=== PATIENT | female | born 1995 | race Caucasian/White ===

== ENCOUNTER 2021-07-29 11:06 | Day surgery (SDC) | payer MEDICAID ==
[2021-07-29] MEDS ORDERED: LACTATED RINGERS 1,000 ML IV ONE (11:39)
[2021-07-29] MEDS ORDERED: BUPIVACAINE 0.5% PF 10 ML VIAL IM ONE ×2 (12:16)
[2021-07-29] MEDS ORDERED: LIDOCAINE 2%-EPI 1:100000 20 ML MDV SUBQ ONE ×2 (12:16)
[2021-07-29] MEDS ORDERED: BUPIVACAINE 0.5% PF 10 ML VIAL ONE (12:17)
[2021-07-29] MEDS ORDERED: LIDOCAINE 2%-EPI 1:100000 20 ML MDV ONE (12:17)
[2021-07-29] MEDS ORDERED: LIDOCAINE OINTMENT 5% 35.44 GM TUBE ONE (12:18)
--- NOTE | 2021-07-29 12:38 | ANESTHESIA ---
Pre-Anesthesia VS, & Labs - Diagnosis incarcerated hemorrhoid - Procedure EUA, hemorrhoid banding Vital Signs: Temp Pulse Resp BP Pulse Ox 36.7 C 72 14 127/87 H 96 07/29/21 11:28 07/29/21 11:28 07/29/21 11:28 07/29/21 11:28 07/29/21 11:28 Height: 5 ft 10 in Weight (kg): 137 kg Body Mass Index: 43.3 BMI Classification: Morbidly Obese - NPO >8 hours - Is Patient ?: No Home Medications and Allergies Home Medications: Ambulatory Orders Albuterol Sulfate [Proair Respiclick] 2 mcg IH BID 07/24/21 Alprazolam [Xanax] 0.25 mg PO DAILY 07/24/21 Fluticasone 44 Mcg [Flovent] 1 puffs INH BID 07/24/21 Venlafaxine ER [Effexor ER] 75 mg PO DAILY 07/24/21 metFORMIN [Glucophage] 500 mg PO ONCE 07/24/21 Albuterol Sulfate [Proair Respiclick] 2 mcg IH BID 07/24/21 Alprazolam [Xanax] 0.25 mg PO DAILY 07/24/21 Fluticasone 44 Mcg [Flovent] 1 puffs INH BID 07/24/21 Venlafaxine ER [Effexor ER] 75 mg PO DAILY 07/24/21 metFORMIN [Glucophage] 500 mg PO ONCE 07/24/21 Allergies/Adverse Reactions: Allergies Allergy/AdvReac Type Severity Reaction Status Date / Time No Known Drug Allergies Allergy Verified 07/24/21 11:11 Anes History & Medical History - Anesthetic History Anesthesia Complications: reports: No previous complications Family history of Anesthesia Complications: Denies Family history of Malignant Hyperthermia: Denies - Medical History Cardiovascular: reports: None Pulmonary: reports: Asthma, Pneumonia Gastrointestinal: reports: None Endocrine/Autoimmune: reports: Other - Surgical History Eyes Ears Nose Throat (EENT): reports: Tonsil/Adenoidectomy Exam General: Alert, Oriented x3, Cooperative Dental: WNL Mouth Openin Fingerbreadth Neck Mobility: Normal Mallampati classification: II Thyromental Distance: 4-6 cm Respiratory: Lungs clear Cardiovascular: Regular rate Plan Anesthesia Type: General Consent for Procedure(s) Verified and Reviewed: Yes Code Status: Attempt Resuscitation ASA classification: 3-Severe systemic disease Is this case an emergency?: No
[2021-07-29 12:48] LABS: HCG UR QUAL NEGATIVE
[2021-07-29] MEDS ORDERED: MIDAZOLAM 2 MG/2 ML VIAL ONE (12:55)
[2021-07-29] MEDS ORDERED: fentaNYL 100 MCG/2 ML VIAL ONE (12:55)
[2021-07-29] MEDS ORDERED: ONDANSETRON 4 MG/2 ML VIAL IVP PRN ×2 (13:03→13:44)
[2021-07-29] MEDS ORDERED: ATROPINE ABBOJECT 1 MG/10 ML SYRINGE IVP PRN (13:03)
[2021-07-29] MEDS ORDERED: NALOXONE 0.4 MG/ML VIAL IVP PRN (13:03)
[2021-07-29] MEDS ORDERED: fentaNYL 100 MCG/2 ML VIAL IVP PRN (13:03)
[2021-07-29] MEDS ORDERED: HYDROmorphone 0.5 MG/0.5 ML SYRINGE IVP PRN (13:03)
[2021-07-29] MEDS ORDERED: ePHEDrine 50 MG/ML VIAL IVP PRN (13:03)
[2021-07-29] MEDS ORDERED: MORPHINE 2 MG/ML CARPUJECT IVP PRN (13:03)
[2021-07-29] MEDS ORDERED: HYDROmorphone 1 MG/ML CARPUJECT ONE ×2 (13:35→14:05)
[2021-07-29] MEDS ORDERED: SUGAMMADEX 200 MG/2 ML VIAL IVP ONE (13:35)
--- NOTE | 2021-07-29 13:38 | OPERATIVE REPORT ---
Operative Report - General Procedure Date: 07/29/21 Planned Procedure: Examination under anesthesia with hemorrhoid banding Pre-Op Diagnosis: Troublesome internal and external hemorrhoids with external skin tags Procedure Performed: Exam under anesthesia and hemorrhoid banding Post Op Diagnosis: Troublesome internal and external hemorrhoids with external skin tags - Procedure Note Primary Surgeon: Ellis Anesthesia Provider: CHLOE Mathew Anesthesia Technique: Local, MAC Pathology: None Estimated Blood Loss (mL): 5 Findings: Full anselmo of enlarged internal hemmorrhoids Large external skin tags Pelvic floor relaxation with mild anal prolapse Complications: None apparent - Other Other Information/Narrative: After obtaining informed consent, the patient was brought to the operating room and placed in supine position on the operating table. Following successful induction of anesthesia, appropriate padding of all bony prominences, and placement of appropriate monitors, the legs were placed in candycane stirrups to create lithotomy position. The perianal region was prepped and draped in the standard surgical fashion. A timeout was held per scope protocol. All elements of the surgical safety checklist were followed before, during, and after this procedure. The anoscope with obturator was lubricated and placed in the patient's anal canal. I noted numerous large external skin tags as well as 1 cm prolapse of the anal mucosa. The veins in this portion of the tissue were enlarged and bulging. The obturator was removed and the slots aligned to allow access to 3 column internal hemorrhoids. The device, the Boni multi band ligator-short shot-was placed into the anal canal. The tip of the device was placed in contact with the tissue to be treated beginning at the 4 o'clock position. The suction port was closed. A single band was deployed and the suction port released.The band was noted to be in place.We next addressed the hemorrhoid complex at 10:00.The tip of the device was placed in contact with the tissue, the suction port covered, a band deployed, the suction port released. Again we were able to see that the band was in place. We next addressed the hemorrhoid at the 9 o'clock position. This was the smallest of the 3. The tip of the device was placed in contact with the tissue, the suction port covered, a band deployed, the suction port released. Again we were able to see that the band was in place. Examination of the anal canal revealed all [address] I noted that there was still bulging of the hemorrhoids at the 5 and 7: 00 positions posteriorly. A traditional hemorrhoid banding device was loaded with 2 additional bands. A bivalve anal speculum was placed in the anal canal to expose both of these regions.A hemorrhoid banding device was loaded with 2 bands. The tissue at the 7 o'clock position was grasped and the bands pushed down to the base of this tissue. The bands were deployed.This was repeated at the 5 o'clock position. The anoscope was removed and the procedure concluded. It is notable that there were 2 significant sized tags remaining at the 3 and 6:00 positions. These did not appear to be significantly changed by placement of bands. The internal hemorrhoid appearance was significantly improved. The patient tolerated the procedure well. She was allowed awaken from sedation and taken to the postanesthesia care unit in good condition.
[2021-07-29] MEDS ORDERED: LACTATED RINGERS 250 ML IV ONE (13:43)
[2021-07-29] MEDS ORDERED: LORazepam 2 MG/ML VIAL IVP PRN ×2 (13:45→13:50)
[2021-07-29] MEDS ORDERED: LIDOCAINE OINTMENT 5% 35.44 GM TUBE TOP ONE (13:46)
[2021-07-29] MEDS ORDERED: LACTATED RINGERS 1,000 ML IV SCH (14:00)
[2021-07-29] MEDS ORDERED: LORazepam 2 MG/ML VIAL ONE (14:00)
[2021-07-29] MEDS ORDERED: ACETAMINOPHEN 1,000 MG/100 ML 100 ML IV ONE ×2 (14:09→14:11)
[2021-07-29] MEDS ORDERED: ONDANSETRON 4 MG/2 ML VIAL ONE (14:14)
--- NOTE | 2021-07-29 15:16 | ANESTHESIA POST OP EVALUATION ---
Anesthesia Post Eval - Post Anesthesia Eval Vitals: Last Vital Signs Temp 36.6 C 07/29/21 14:33 Pulse 83 07/29/21 14:45 Resp 20 07/29/21 14:45 BP 120/80 07/29/21 14:45 Pulse Ox 94 07/29/21 14:45 CV Function Including HR & BP: Stable Pain Control: Satisfactory Nausea & Vomiting: Negative Mental Status: Baseline Respiratory Status: Airway Patent Hydration Status: Satisfactory Anesthesia Complications: None
[2021-07-29 15:33] VITALS: BP 116/60
== END 2021-07-29 11:07 | disposition home or self-care (01) ==
LOC: SDS 11:06
PROVIDERS: ATTEND Surgery
DX: K64.8 Other hemorrhoids (principal); K64.4 Residual hemorrhoidal skin tags; K62.2 Anal prolapse; E66.01 Morbid (severe) obesity due to excess calories; Z68.41 Body mass index [BMI] 40.0-44.9, adult
CPT/HCPCS: 46221; 81025; A9270; J0131; J1170; J2060; J7120

== ENCOUNTER 2021-07-30 11:05 | Observation (INO) | payer MEDICAID ==
[2021-07-30] MEDS ORDERED: ONDANSETRON 4 MG/2 ML VIAL IVP STA (11:26)
[2021-07-30] MEDS ORDERED: SODIUM CHLORIDE 0.9% 1,000 ML IV STA ×2 (11:26→11:49)
[2021-07-30] MEDS ORDERED: MORPHINE 2 MG/ML CARPUJECT IVP STA (11:49)
[2021-07-30] MEDS ORDERED: HALOPERIDOL 5 MG/ML VIAL IM STA (11:49)
[2021-07-30] MEDS ORDERED: diphenhydrAMINE INJ 50 MG/ML VIAL IVP STA (11:49)
--- NOTE | 2021-07-30 11:54 | ED Physician Documentation ---
PD HPI ABD PAIN - Stated complaint Stated Complaint: VOMMITING, CHILLS, DIZZY - Chief complaint Chief Complaint: Abd Pain - Additional information Additional information: Patient is 25-year-old female presenting with abdominal pain, nausea and vomiting. Endorses for 1 day history epigastric abdominal pain with multiple episodes of nausea and vomiting and inability to tolerate p.o. fluids. Reports underwent hemorrhoidectomy with local anesthetic yesterday. Has had this procedure performed twice previously. Denies previous or other abdominal surgeries. States got home and immediately had pain and nausea that persisted throughout the night. Has not been able to fill any of her prescriptions however does state that she was smoking marijuana and that this helps somewhat with her symptoms. Reports that she is a daily marijuana smoker. Denies for any other illicit substance abuse. Denies for fever, chills, chest pain, shortness of breath, pain associated with her rectum or the procedure site, diarrhea, constipation, new rash, new weakness/numbness/tingling in any extremity. Review of Systems Ten Systems: 10 systems reviewed and negative Constitutional: denies: Fever Eyes: denies: Loss of vision Ears: denies: Loss of hearing Nose: denies: Rhinorrhea / runny nose Cardiac: denies: Chest pain / pressure GI: reports: Abdominal Pain, Nausea, Vomiting : denies: Dysuria Skin: denies: Rash Musculoskeletal: denies: Neck pain Neurologic: denies: Generalized weakness Psychiatric: denies: Depressed PD PAST MEDICAL HISTORY - Past Medical History Cardiovascular: None Respiratory: Asthma, Pneumonia Endocrine/Autoimmune: Other GI: None Psych: Depression, Anxiety, Panic attacks, Post traumatic stress disorder - Past Surgical History HEENT: Tonsil/Adenoidectomy - Present Medications Home Medications: Ambulatory Orders Medication Instructions Recorded Confirmed Alprazolam [Xanax] 0.25 mg PO DAILY PRN 07/24/21 07/30/21 metFORMIN [Glucophage] 500 mg PO DAILY 07/24/21 07/30/21 Diazepam [Valium] 5 mg PO Q12H PRN #10 tablet 07/29/21 07/30/21 Docusate Sodium 100Mg Capsule 100 mg PO DAILY #30 cap 07/29/21 07/30/21 [Colace 100Mg Capsule] Ondansetron Odt [Zofran Odt] 4 mg TL Q6H PRN #14 tablet 07/29/21 07/30/21 oxyCODONE [Roxicodone] 5 mg PO Q4-6H PRN #20 tablet 07/29/21 07/30/21 Albuterol Sulfate [Proair Hfa 2 puffs INH Q4HR PRN 07/30/21 07/30/21 Inhaler] Fluticasone 44 Mcg [Flovent] 1 puffs INH BID 07/30/21 07/30/21 Levonorgestrel-Ethin Estradiol 1 tab PO DAILY 07/30/21 07/30/21 [Afirmelle-28 Tablet] Venlafaxine ER [Effexor ER] 150 mg PO DAILY 07/30/21 07/30/21 - Allergies Allergies/Adverse Reactions: Allergies Allergy/AdvReac Type Severity Reaction Status Date / Time No Known Drug Allergies Allergy Verified 07/30/21 11:13 PD ED PE NORMAL - Vitals Vital signs reviewed: Yes - General General: Alert and oriented X 3 - HEENT HEENT: Atraumatic - Neck Neck: Supple, no meningeal sign - Cardiac Cardiac: RRR - Respiratory Respiratory: No respiratory distress - Abdomen Abdomen: Normal bowel sounds. No: Non tender (Epigastric) - Derm Derm: Normal color - Extremities Extremities: No deformity Results - Vitals Vitals: Vital Signs - 24 hr 07/30/21 11:10 Temperature 36.1 C L Heart Rate 129 H Respiratory 20 Rate Blood Pressure 135/81 H O2 Saturation 96 - Labs Labs: Laboratory Tests 07/30/21 07/30/21 11:53 11:53 WBC 11.5 H RBC 4.75 Hgb 13.8 Hct 42.0 MCV 88.4 MCH 29.1 MCHC 32.9 RDW 12.7 Plt Count 231 MPV 11.1 H Neut # (Auto) 9.0 H Lymph # (Auto) 1.9 [place] # (Auto) 0.6 Eos # (Auto) 0.0 Baso # (Auto) 0.0 Absolute Nucleated RBC 0.00 Nucleated RBC % 0.0 Sodium 136 Potassium 4.5 Chloride 98 L Carbon Dioxide 26 Anion Gap 12.0 BUN 14 Creatinine 0.8 Estimated GFR (MDRD) 86 L Glucose 119 H Calcium 9.6 Lipase 37 PD MEDICAL DECISION MAKING - ED course ED course: Patient presents with abdominal pain with associated nausea vomiting post procedure day 1 Hemorrhoidectomy performed at this facility. Patient afebrile, hemodynamically stable. Moderately distressed. Did endorse for significant epigastric abdominal pain and had tenderness to palpation as well as persistent nausea vomiting. Endorsed for daily marijuana use as well as marijuana use immediately prior to arrival Initially ordered work-up including labs, imaging however patient was evaluated independently by Dr. Corral who elected to Admit the patient to an obs status under their service. Departure - Departure Disposition: ED Place in Observation Clinical Impression: Vomiting, Abdominal pain Discharge Date/Time: 07/30/21 13:39
[2021-07-30 11:59] LABS: BASOPHILS % (AUTO) 0.1 %; HGB - HEMOGLOBIN 13.8 g/dL (12.0-16.0); LYMPHOCYTES # (AUTO) 1.9 10^3/uL (1.5-3.5); LYMPHOCYTES % (AUTO) 16.3 %; MEAN CORPUSCULAR HEMOGLOBIN 29.1 pg (27.0-31.0); MEAN CORPUSCULAR HGB CONC 32.9 g/dL (32.0-36.0); MEAN CORPUSCULAR VOLUME 88.4 fL (81.0-99.0); MEAN PLATELET VOLUME 11.1 fL (7.9-10.8); MONOCYTES # (AUTO) 0.6 10^3/uL (0.0-1.0); MONOCYTES % (AUTO) 5.6 %; NEUTROPHILS % (AUTO) 77.7 %; PLT - PLATELET COUNT 231 10^3/uL (130-450); RED BLOOD COUNT 4.75 10^6/uL (4.20-5.40); RED CELL DISTRIBUTION WIDTH 12.7 % (12.0-15.0); WHITE BLOOD COUNT 11.5 x10^3/uL (4.8-10.8)
[2021-07-30] MEDS ORDERED: HALOPERIDOL 5 MG/ML VIAL IVP ONE (12:00)
[2021-07-30] MEDS ORDERED: IOVERSOL 320 100 ML VIAL IVP ONE ×2 (12:06→13:10)
[2021-07-30 12:12] LABS: CALCIUM 9.6 mg/dL (8.5-10.3); CREATININE 0.8 mg/dL (0.4-1.0); POTASSIUM 4.5 mmol/L (3.5-5.0)
[2021-07-30] MEDS ORDERED: KETOROLAC 30 MG/ML VIAL IVP PRN (12:13)
[2021-07-30] MEDS ORDERED: ONDANSETRON 4 MG/2 ML VIAL IVP PRN (12:13)
[2021-07-30] MEDS ORDERED: HYDROmorphone 1 MG/ML CARPUJECT IVP PRN (12:13)
[2021-07-30] MEDS ORDERED: SODIUM CHLORIDE FLUSH 0.9% 10 ML SYRINGE IVP PRN (12:13)
[2021-07-30] MEDS ORDERED: oxyCODONE 5 MG TABLET PO PRN (12:13)
[2021-07-30] MEDS ORDERED: LORazepam 2 MG/ML VIAL IVP PRN (12:13)
--- NOTE | 2021-07-30 12:22 | SURGERY HX AND PHYSICAL(T) ---
Surgical History & Physical - Chief Complaint/HPI Chief Complaint: Intractable nausea, vomiting, and pain History of Present Illness: Bibi is a wonderful 25-year-old lady who underwent examination under an hemorrhoidectomy and hemorrhoid banding yesterday. She tells me that she was not able to pick up driver any of her pain medicine or nausea medicine last evening. She lives in [place] and her mom drove her straight home. She initially did okay and then she developed nausea associated with pain. She vomited most of the night and her pain was uncontrolled. This morning, she is presented back to the emergency room for the above reasons. She denies any fever. She has been urinating but not drinking a whole lot. - PMH/PSH/Social Hx Does the pt have a hx of MRSA?: No Cardiovascular: None Respiratory: Asthma, Pneumonia Endocrine/Autoimmune: Other Gastrointestinal: None Psychiatric: Depression, Anxiety, Panic attacks, Post traumatic stress disorder Eyes Ears Nose Throat (EENT): Tonsil/Adenoidectomy - Home Meds and Allergies Home Medications: Albuterol Sulfate [Proair Respiclick] 2 mcg IH BID 07/24/21 Alprazolam [Xanax] 0.25 mg PO DAILY 07/24/21 Fluticasone 44 Mcg [Flovent] 1 puffs INH BID 07/24/21 Venlafaxine ER [Effexor ER] 75 mg PO DAILY 07/24/21 metFORMIN [Glucophage] 500 mg PO ONCE 07/24/21 Allergies/Adverse Reactions: Allergies Allergy/AdvReac Type Severity Reaction Status Date / Time No Known Drug Allergies Allergy Verified 07/30/21 11:13 - Review of Systems Constitutional: Fatigue, Poor appetite Gastrointestinal: Nausea, Vomiting, Abdominal pain, Other (Anal pain) - Vital Signs Heart Rate: 129 Blood Pressure: 135/81 Temperature: 36.1 C Respiratory Rate: 20 O2 Saturation: 96 Weight (kg): 136.078 kg Height: 1.78 m - Physical Exam General Appearance: positive: Alert, Mild distress Eyes Bilatera: positive: Normal inspection, PERRL, EOMI ENT: positive: ENT inspection nml, Pharynx nml Neck: positive: Nml inspection, Thyroid nml Respiratory: positive: No respiratory distress, Breath sounds nml Cardiovascular: positive: Regular rate & rhythm, Tachycardia Peripheral Pulses: positive: 2+ Abdomen: positive: Non-tender, Other (Significant swelling in the perianal region.Bruising is also noted.) Rectal: positive: Tenderness, Hemorrhoid Extremities: positive: Non-tender, Full ROM Neurologic/Psychiatric: positive: Oriented x3, CN's nml (2-12) - Patient Review Patient Review: Problems were reviewed with the patient during this visit. Medications were reviewed with the patient during this visit. Allergies were reviewed this patient during this visit. Pertinent Tests Reviewed: All pertitent test for this patient were reviewed. - Assessment & Plan Assessment and Plan: Intractable nausea, vomiting, and abdominal pain following hemorrhoidectomy. We can admit her for observation, supportive care and hydration. We will start her on IV fluids, antiemetics, antibiotics, and pain medication. Hopefully this will resolve quickly and she can continue with an uneventful recovery.
[2021-07-30] MEDS ORDERED: VENLAFAXINE ER 75 MG CAPSULE PO SCH (13:00)
--- NOTE | 2021-07-30 13:17 | CT Report ---
PROCEDURE: Abdomen/Pelvis W INDICATIONS: Abdominal pain, s/p Hemorrhoidectomy CONTRAST: IV CONTRAST: Optiray 320 ml: 100 PO CONTRAST: *NO PO CONTRAST TECHNIQUE: After the administration of intravenous contrast, 5 mm thick sections acquired from the diaphragms to the symphysis. 5 mm thick coronal and sagittal reformats were acquired. For radiation dose reducti on, the following was used: automated exposure control, adjustment of mA and/or kV according to delilah ent size. COMPARISON: None. FINDINGS: Image quality: Excellent. ABDOMEN: Lung bases: Mild bibasilar infiltrates or atelectasis. Heart size is normal. Solid organs: Liver is mildly enlarged. There is a 1 cm indeterminant hypodensity in the right hepat ic lobe. Mild hepatic steatosis. Spleen is normal in size and enhancement. Gallbladder is normal. B iliary system is non dilated. Pancreas enhances normally. No adrenal nodules. Kidneys demonstrate normal size and enhancement, without hydronephrosis. Peritoneum and bowel: Bowel loops demonstrate normal wall thickness and caliber. No free fluid or a ir. Nodes and vessels: No retroperitoneal or mesenteric adenopathy by size criteria. Aorta and inferior vena cava are normal in size. Miscellaneous: No ventral hernias. PELVIS: Genitourinary: Uterus and ovaries are unremarkable. Bladder wall thickness is normal. Miscellaneous: No inguinal hernias or adenopathy. Bones: No suspicious bony lesions. No vertebral body compression fractures. IMPRESSION: 1. No acute abnormalities in abdomen or pelvis. 2.Mild bibasilar infiltrates or atelectasis. 3. A 1 cm indeterminate hypodensity in the posterior segment of right hepatic lobe. Reviewed by: Alton Boyle MD on 07/30/2021 1:16 PM PST Approved by: Alton Boyle MD on 07/30/2021 1:16 PM PST Station ID: [id number]
[2021-07-30 13:38] LABS: B. PARAPERTUSSIS- RESP PCR PAN NOT DETECTED; B. PERTUSSIS- RESP PCR PANEL NOT DETECTED; C. PNEUMONIAE- RESP PCR PANEL NOT DETECTED; CORONAVIRUS 229E-RESP PCR NOT DETECTED; CORONAVIRUS HKU1-RESP PCR NOT DETECTED; CORONAVIRUS NL63-RESP PCR NOT DETECTED; CORONAVIRUS OC43-RESP PCR NOT DETECTED; HUMAN METAPNEUMOVIRUS NOT DETECTED; INFLUENZA A- RESP PCR PANEL NOT DETECTED; INFLUENZA B - RESP PCR PANEL NOT DETECTED; M. PNEUMONIAE- RESP PCR PANEL NOT DETECTED; PARAINFLUENZA VIRUS 1 NOT DETECTED; PARAINFLUENZA VIRUS 2 NOT DETECTED; PARAINFLUENZA VIRUS 3 NOT DETECTED; PARAINFLUENZA VIRUS 4 NOT DETECTED; RHINOVIRUS/ENTEROVIRUS NOT DETECTED; RSV- RESP PCR PANEL NOT DETECTED; SARS-CoV-2 -RESP PCR PANEL NOT DETECTED
[2021-07-30] MEDS ORDERED: ALBUTEROL NEB 2.5 MG/3 ML INH PRN (13:39)
[2021-07-30] MEDS ORDERED: ceFAZolin 2 GM in SODIUM CHLORIDE 0.9% 100ML 100 ML IV SCH (14:00)
[2021-07-30 14:10] LABS: HCG UR QUAL NEGATIVE
[2021-07-30] MEDS: METOCLOPRAMIDE 10 MG/2 ML VIAL IVP SCH ×2 (14:23→19:45)
[2021-07-30] MEDS: PANTOPRAZOLE 40 MG VIAL IVP SCH (14:26)
[2021-07-30] MEDS: ACETAMINOPHEN 1,000 MG/100 ML 100 ML IV SCH ×2 (14:29→19:44)
[2021-07-30] MEDS: SODIUM CHLORIDE 0.9% 1,000 ML IV SCH (14:34)
--- NOTE | 2021-07-30 16:03 | PHARMACY PROGRESS NOTE ---
- Best Possible Medication History Admit Date and Time: 07/30/21 1213 Processed by: Pharmacy Medication History completed: Yes Patient Interview: Completed Secondary Source(s): Physician records, Pharmacy records, Insurance records Patient has recent post-op prescriptions for docusate, ondansetron, and oxycodone which she has not yet picked up. I have left them on the medication list. As the person ultimately responsible for medication therapy, providers are able to order a medication from an existing home medication list in [facility] via the "Reconcile Routine" prior to Confirmation of that medication by coding support specialist. Such practice is discouraged except when the physician, in their clinical judgment, deems that a medical need exists for a medication without regard to previous use.
[2021-07-30] MEDS ORDERED: VENLAFAXINE ER 75 MG CAPSULE PO ONE (17:00)
[2021-07-30] MEDS: SODIUM CHLORIDE FLUSH 0.9% 10 ML SYRINGE IVP SCH (17:48)
[2021-07-30] MEDS ORDERED: BUDESONIDE 0.5 MG/2 ML NEB INH SCH (19:00)
[2021-07-30] MEDS: ENOXAPARIN 40 MG/0.4 ML SYRINGE SUBQ SCH (20:32)
[2021-07-31] MEDS: ACETAMINOPHEN 1,000 MG/100 ML 100 ML IV SCH ×2 (00:24→06:09)
[2021-07-31] MEDS: SODIUM CHLORIDE FLUSH 0.9% 10 ML SYRINGE IVP SCH ×2 (00:25→08:13)
[2021-07-31] MEDS: METOCLOPRAMIDE 10 MG/2 ML VIAL IVP SCH ×2 (00:25→06:10)
[2021-07-31] MEDS: SODIUM CHLORIDE 0.9% 1,000 ML IV SCH ×2 (02:14→03:37)
[2021-07-31 05:47] LABS: EOSINOPHILS % (AUTO) 0.3 %; HCT - HEMATOCRIT 34.7 % (37.0-47.0); HGB - HEMOGLOBIN 11.3 g/dL (12.0-16.0); LYMPHOCYTES # (AUTO) 2.8 10^3/uL (1.5-3.5); LYMPHOCYTES % (AUTO) 43.7 %; MEAN CORPUSCULAR HEMOGLOBIN 29.5 pg (27.0-31.0); MEAN CORPUSCULAR HGB CONC 32.6 g/dL (32.0-36.0); MEAN CORPUSCULAR VOLUME 90.6 fL (81.0-99.0); MEAN PLATELET VOLUME 11.4 fL (7.9-10.8); MONOCYTES # (AUTO) 0.5 10^3/uL (0.0-1.0); MONOCYTES % (AUTO) 7.1 %; NEUTROPHILS # (AUTO) 3.1 10^3/uL (1.5-6.6); NEUTROPHILS % (AUTO) 48.6 %; PLT - PLATELET COUNT 151 10^3/uL (130-450); RED BLOOD COUNT 3.83 10^6/uL (4.20-5.40); WHITE BLOOD COUNT 6.3 x10^3/uL (4.8-10.8)
[2021-07-31 05:53] LABS: CALCIUM 8.6 mg/dL (8.5-10.3); CREATININE 0.7 mg/dL (0.4-1.0); POTASSIUM 3.6 mmol/L (3.5-5.0)
[2021-07-31] MEDS: PANTOPRAZOLE 40 MG VIAL IVP SCH (06:10)
--- NOTE | 2021-07-31 07:43 | Discharge Plan ---
Discharge Plan Problem Reviewed?: Yes Disposition: Home, Self Care Condition: Good Prescriptions: oxyCODONE [Roxicodone] 5 mg PO Q4HR PRN #20 tablet PRN Reason: Pain Docusate Sodium 100Mg Capsule [Colace 100Mg Capsule] 100 mg PO DAILY #20 cap Diazepam [Valium] 5 mg PO TID PRN #14 tablet PRN Reason: Pain Ondansetron Odt [Zofran Odt] 4 mg TL Q6H PRN #14 tablet PRN Reason: Nausea / Vomiting Diet: Regular Activity Restrictions: 10 pound lifting limit Shower Restrictions: No Driving Restrictions: Yes (Not while using narcotic pain medication) No Smoking: If you smoke, Please STOP! Call for help. Follow-up with: Tanner Russo SR, MD [Primary Care Provider] - Vicente Corral MD [Provider Admit Priv/Credential] -
--- NOTE | 2021-07-31 07:47 | DISCHARGE SUMMARY ---
"Discharge Summary Admit Date: 07/30/21 Discharge Date: 07/31/21 Condition at Discharge: Good Discharge Disposition: 01 Home, Self Care - DIAGNOSES Admission Diagnoses: Intractable pain with nausea and vomiting Discharge Diagnoses with Status of Each Condition: Resolved - HPI History of Present Illness: Bibi is a wonderful 25-year-old lady who underwent examination under anesthesia with hemorrhoidectomy on July 29. She had a difficult night and the following morning presented back to the emergency room with intractable pain and nausea and vomiting. - CONSULTS | PROCEDURES Consultations: None Procedures: None - HOSPITAL COURSE Hospital Course: Bibi was admitted for hydration, pain control, and supportive care. Overnight her nausea has resolved. She has been taking only Tylenol and Toradol for pain control and she has not required any additional antiemetic medication. She is well-hydrated this morning. She states her pain is under control and she has been able to eat without nausea. She is discharged to her home in the care of her family. She will keep her previously scheduled follow-up appointment at [facility]. - ALLERGIES Allergies/Adverse Reactions: Allergies Allergy/AdvReac Type Severity Reaction Status Date / Time No Known Drug Allergies Allergy Verified 07/30/21 11:13 - MEDICATIONS Home Medications: Ambulatory Orders Medication Instructions Recorded Confirmed Alprazolam [Xanax] 0.25 mg PO DAILY PRN 07/24/21 07/30/21 metFORMIN [Glucophage] 500 mg PO DAILY 07/24/21 07/30/21 Albuterol Sulfate [Proair Hfa 2 puffs INH Q4HR PRN 07/30/21 07/30/21 Inhaler] Fluticasone 44 Mcg [Flovent] 1 puffs INH BID 07/30/21 07/30/21 Levonorgestrel-Ethin Estradiol 1 tab PO DAILY 07/30/21 07/30/21 [Afirmelle-28 Tablet] Venlafaxine ER [Effexor ER] 150 mg PO DAILY 07/30/21 07/30/21 Albuterol 2.5 mg INH RTQ4H PRN neb 07/31/21 Diazepam [Valium] 5 mg PO TID PRN #14 tablet 07/31/21 Docusate Sodium 100Mg Capsule 100 mg PO DAILY #20 cap 07/31/21 [Colace 100Mg Capsule] Ondansetron Odt [Zofran Odt] 4 mg TL Q6H PRN #14 tablet 07/31/21 oxyCODONE [Roxicodone] 5 mg PO Q4HR PRN #20 tablet 07/31/21 - PHYSICAL EXAM AT DISCHARGE General Appearance: positive: No acute distress, Alert Eyes Bilateral: positive: Normal inspection, PERRL, EOMI ENT: positive: ENT inspection nml Neck: positive: Nml inspection Respiratory: positive: No respiratory distress, Breath sounds nml Cardiovascular: positive: Regular rate & rhythm Peripheral Pulses: positive: 2+ Abdomen: positive: Non-tender, Nml bowel sounds Rectal: positive: Tenderness (Appropriate) Back: positive: Nml inspection Skin: positive: Color nml Extremities: positive: Non-tender, Full ROM Neurologic/Psychiatric: positive: Oriented x3 - LABS Result Diagrams: 07/31/21 05:19 07/31/21 05:19 - QUALITY (Female Hip Fx Only) Was patient sent home on osteoporosis medication?: No - FOLLOW UP Follow Up: As previously scheduled with [facility] surgical care - TIME SPENT Time Spent in Discharge (Minutes): 15"
[2021-07-31] MEDS: ENOXAPARIN 40 MG/0.4 ML SYRINGE SUBQ SCH (08:12)
[2021-07-31 08:14] VITALS: BP 126/59
[2021-07-31] MEDS ORDERED: metFORMIN 500 MG TABLET PO SCH (09:00)
[2021-07-31] MEDS ORDERED: DOCUSATE SODIUM 100 MG CAPSULE PO SCH (09:00)
[2021-07-31] MEDS ORDERED: VENLAFAXINE ER 75 MG CAPSULE PO SCH (09:00)
== END 2021-07-31 09:50 | disposition home or self-care (01) ==
LOC: ED 11:05 → MS2 12:13
PROVIDERS: ADMIT Surgery; ATTEND Surgery
DX: R11.2 Nausea with vomiting, unspecified (principal); R10.13 Epigastric pain; K62.89 Other specified diseases of anus and rectum; Z98.890 Other specified postprocedural states; F32.A Depression, unspecified; F41.9 Anxiety disorder, unspecified; Z20.822 Contact with and (suspected) exposure to COVID-19
CPT/HCPCS: 0202U; 36415; 74177; 80048; 81025; 83690; 85025; 94640; 96365; 96366; 96367; 96368; 96372; 96375; 96376; 99284; 99285; A9270; G0378; J0131; J1200; J1650; J2765; J7040; J7626; Q9967